=== PATIENT | male | born 2000 | race Two or more races ===

== ENCOUNTER 2022-02-19 09:17 | Emergency (ER) | payer MEDICAID ==
[~2022-02-19] VITALS: Ht 185.4 cm; Wt 82.6 kg
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
[2022-02-19] MEDS ORDERED: IBUPROFEN 600 MG TABLET ONE (11:13)
[2022-02-19] MEDS ORDERED: IBUPROFEN 600 MG TABLET PO ONE (11:30)
--- NOTE | 2022-02-19 11:49 | NUR ---
Patient discharged to home in stable condition. Written and verbal after care instructions given. Patient verbalizes understanding of instruction.
[2022-02-19 11:50] VITALS: BP 136/80
== END 2022-02-19 11:50 | disposition home or self-care (01) ==
LOC: ER 09:51
DX: S23.3XXA Sprain of ligaments of thoracic spine, initial encounter (principal); S20.219A Contusion of unspecified front wall of thorax, initial encounter; S49.92XA Unspecified injury of left shoulder and upper arm, initial encounter; V32.5XXA Driver of three-wheeled motor vehicle injured in collision with two- or three-wheeled motor vehicle in traffic accident, initial encounter; Y93.89 Activity, other specified; Y92.89 Other specified places as the place of occurrence of the external cause; Y99.8 Other external cause status
CPT/HCPCS: 71100-TC; 72074-TC; 72110-TC; 73030-TC